=== PATIENT | female | born 1950 | race Caucasian/White ===

== ENCOUNTER 2019-09-11 14:03 | Inpatient (IN) | payer MEDICARE ==
[~2019-09-11] VITALS: Ht 27.9 cm; Wt 104.8 kg
[~2019-09-11 14:03] MED LIST: ALDACTONE50 M1 PO; ALDACTONE50 MG PO; FLEXERIL PO; GABAPENTIN100 MG PO; GABAPENTIN400 M2 PO; LEVOTHYROXIN150 MCG PO; MEDDOSEPAK PO; METFORMIN500 M1 PO; METFORMIN500 M2 PO; SYNTHROID150 MCG PO; VICODIN1 TA1 PO; ZOCOR PO; ZOCOR10 MG PO
[2019-09-11 15:31] LABS: HEMATOCRIT 37.5 % (37.0-47.0); HEMOGLOBIN 12.5 g/dl (12.0-16.0); IMMATURE GRANULOCYTES 1.3 % (0.0-5.0); MEAN CORPUSCULAR HGB 29.3 pG CALC (26.0-32.0); MEAN CORPUSCULAR HGB CONC 33.3 g/L CALC (32.0-36.0); NEUT# 23.08 thou/uL (2.00-7.15); RED BLOOD COUNT 4.26 mill/uL (4.20-5.60); RED CELL DISTRI WIDTH 15.2 % (11.5-15.5)
[2019-09-11 16:04] LABS: URINE BILIRUBIN - DIPSTICK NEGATIVE (NEGATIVE); URINE BLOOD DIPSTICK LARGE (NEGATIVE); URINE COLOR YELLOW; URINE GLUCOSE - DIPSTICK >=1000 mg/dL (NEGATIVE); URINE KETONE TRACE mg/dL (NEGATIVE); URINE LEUK ESTERASE NEGATIVE (NEGATIVE); URINE PH 5.5 (4.5-8.0); URINE PROTEIN - DIPSTICK TRACE mg/dL (NEG-TRACE); URINE SPECIFIC GRAVITY >=1.030; URINE UROBILINOGEN - DIPSTICK 0.2 E.U./dL (0.2)
[2019-09-11 16:08] LABS: URINE NITRITE - DIPSTICK POSITIVE (Negative)
[2019-09-11 16:17] LABS: URINE BACTERIA MANY hpf; URINE SQUAMOUS EPITHELIAL CELL FEW EPI/hpf (0-FEW)
[2019-09-11 16:21] LABS: PROTHROMBIN TIME 10.3 SECONDS (9.0-12.5)
[2019-09-11 17:20] LABS: ALBUMIN 3.5 g/dL (3.2-5.0); ALKALINE PHOSPHATASE 65 u/l (38-126); BUN 22 mg/dL (8-23); BUN/CREATININE RATIO 16 (12-20 (CALC)); CHLORIDE 99 mmol/l (95-108); CREATININE 1.4 mg/dL (0.5-1.0); GFR 37 ML/MIN (>=60 (CALC)); GFR FOR AFR.AMER. 45 ML/MIN (>=60 (CALC)); SGOT/AST 21 u/l (9-36); TOTAL PROTEIN 6.1 g/dL (6.3-8.2)
[2019-09-11 17:26] LABS: SODIUM 131 mmol/l (137-146)
[2019-09-11 17:27] LABS: ANION GAP 18 (6-22 (CALC)); BILIRUBIN, TOTAL 0.6 mg/dL (0.0-1.4); CARBON DIOXIDE 19 mmol/l (22-30); POTASSIUM 5.2 mmol/l (3.5-5.1)
[2019-09-11 21:51] VITALS: BP 109/65
[2019-09-11 22:15] VITALS: BP 111/61
[2019-09-11 23:30] VITALS: BP 93/48
[2019-09-11 23:45] VITALS: BP 92/45
[2019-09-12] VITALS (74 sets, daily range): BP systolic 60–144; BP diastolic 30–77
[2019-09-12 06:15] LABS: HEMATOCRIT 34.1 % (37.0-47.0); HEMOGLOBIN 11.2 g/dl (12.0-16.0); IMMATURE GRANULOCYTES 2.4 % (0.0-5.0); MEAN CORPUSCULAR HGB 29.2 pG CALC (26.0-32.0); MEAN CORPUSCULAR HGB CONC 32.8 g/L CALC (32.0-36.0); NEUT# 27.27 thou/uL (2.00-7.15); RED BLOOD COUNT 3.83 mill/uL (4.20-5.60); RED CELL DISTRI WIDTH 15.8 % (11.5-15.5)
[2019-09-12 06:23] LABS: ALBUMIN 2.9 g/dL (3.2-5.0); BILIRUBIN, TOTAL 0.5 mg/dL (0.0-1.4); CREATININE 1.5 mg/dL (0.5-1.0); POTASSIUM 4.8 mmol/l (3.5-5.1); TOTAL PROTEIN 5.3 g/dL (6.3-8.2)
[2019-09-12 10:45] LABS: URINE BILIRUBIN - DIPSTICK NEGATIVE (NEGATIVE); URINE BLOOD DIPSTICK MODERATE (NEGATIVE); URINE CLARITY HAZY; URINE COLOR YELLOW; URINE GLUCOSE - DIPSTICK 250 mg/dL (NEGATIVE); URINE KETONE NEGATIVE (NEGATIVE); URINE LEUK ESTERASE NEGATIVE (Negative); URINE NITRITE - DIPSTICK POSITIVE (Negative); URINE PROTEIN - DIPSTICK 30 mg/dL (NEG-TRACE); URINE UROBILINOGEN - DIPSTICK 0.2 E.U./dL (0.2)
[2019-09-12 10:47] LABS: URINE BACTERIA FEW hpf; URINE EPITHELIAL CELLS FEW EPI/hpf (0-FEW); URINE MUCUS FEW hpf (NONE-FEW)
[2019-09-13] VITALS (62 sets, daily range): BP systolic 98–145; BP diastolic 40–80
[2019-09-13 05:46] LABS: HEMATOCRIT 35.1 % (37.0-47.0); HEMOGLOBIN 11.3 g/dl (12.0-16.0); MEAN CELL VOLUME 90.5 fL CALC (80.0-100.0); MEAN CORPUSCULAR HGB 29.1 pG CALC (26.0-32.0); MEAN CORPUSCULAR HGB CONC 32.2 g/L CALC (32.0-36.0); RED BLOOD COUNT 3.88 mill/uL (4.20-5.60); RED CELL DISTRI WIDTH 15.7 % (11.5-15.5)
[2019-09-13 06:17] LABS: CREATININE 1.2 mg/dL (0.5-1.0); POTASSIUM 5.1 mmol/l (3.5-5.1)
[2019-09-13] MEDS ORDERED: PRAMIPEXOLE DIHY1 MG PO (17:17)
[2019-09-14] VITALS (40 sets, daily range): BP systolic 90–138; BP diastolic 46–79
[2019-09-14 05:29] LABS: HEMOGLOBIN 11.7 g/dl (12.0-16.0); MEAN CELL VOLUME 88.9 fL CALC (80.0-100.0); MEAN CORPUSCULAR HGB 28.9 pG CALC (26.0-32.0); MEAN CORPUSCULAR HGB CONC 32.5 g/L CALC (32.0-36.0); RED BLOOD COUNT 4.05 mill/uL (4.20-5.60); RED CELL DISTRI WIDTH 15.4 % (11.5-15.5)
[2019-09-14 05:46] LABS: ANION GAP 15 (6-22 (CALC)); BUN 31 mg/dL (8-23); BUN/CREATININE RATIO 30 (12-20 (CALC)); CARBON DIOXIDE 15 mmol/l (22-30); CHLORIDE 108 mmol/l (95-108); GFR 55 ML/MIN (>=60 (CALC)); GFR FOR AFR.AMER. > 60 ML/MIN (>=60 (CALC)); POTASSIUM 4.5 mmol/l (3.5-5.1); SODIUM 133 mmol/l (137-146)
[2019-09-14] MEDS ORDERED: CLEOCIN150 M1 PO (13:49)
[2019-09-15] VITALS (18 sets, daily range): BP systolic 90–127; BP diastolic 45–67
[2019-09-15 04:59] LABS: HEMATOCRIT 33.6 % (37.0-47.0); HEMOGLOBIN 11.1 g/dl (12.0-16.0); MEAN CELL VOLUME 88.2 fL CALC (80.0-100.0); MEAN CORPUSCULAR HGB 29.1 pG CALC (26.0-32.0); RED BLOOD COUNT 3.81 mill/uL (4.20-5.60); RED CELL DISTRI WIDTH 15.5 % (11.5-15.5)
[2019-09-15 05:26] LABS: ALBUMIN 2.9 g/dL (3.2-5.0); BILIRUBIN, TOTAL 0.5 mg/dL (0.0-1.4); BUN 38 mg/dL (8-23); BUN/CREATININE RATIO 41 (12-20 (CALC)); CHLORIDE 109 mmol/l (95-108); CREATININE 0.9 mg/dL (0.5-1.0); GFR > 60 ML/MIN (>=60 (CALC)); GFR FOR AFR.AMER. > 60 ML/MIN (>=60 (CALC)); POTASSIUM 4.3 mmol/l (3.5-5.1); SGOT/AST 20 u/l (9-36); SODIUM 135 mmol/l (137-146); TOTAL PROTEIN 5.3 g/dL (6.3-8.2)
[2019-09-15 05:45] LABS: ALKALINE PHOSPHATASE 96 u/l (38-126); ANION GAP 11 (6-22 (CALC)); CARBON DIOXIDE 19 mmol/l (22-30)
[2019-09-16] VITALS (19 sets, daily range): BP systolic 93–146; BP diastolic 45–79
[2019-09-17] VITALS (15 sets, daily range): BP systolic 87–167; BP diastolic 44–82
[2019-09-17 05:06] LABS: HEMATOCRIT 34.3 % (37.0-47.0); HEMOGLOBIN 11.3 g/dl (12.0-16.0); MEAN CELL VOLUME 87.9 fL CALC (80.0-100.0); MEAN CORPUSCULAR HGB CONC 32.9 g/L CALC (32.0-36.0); NEUT# 8.85 thou/uL (2.00-7.15); RED BLOOD COUNT 3.9 mill/uL (4.20-5.60); RED CELL DISTRI WIDTH 15.3 % (11.5-15.5)
[2019-09-17 05:10] LABS: IMMATURE GRANULOCYTES 13.3 % (0.0-5.0)
[2019-09-17 05:21] LABS: ALKALINE PHOSPHATASE 71 u/l (38-126); ANION GAP 10 (6-22 (CALC)); BILIRUBIN, TOTAL 0.6 mg/dL (0.0-1.4); BUN 37 mg/dL (8-23); BUN/CREATININE RATIO 47 (12-20 (CALC)); CHLORIDE 110 mmol/l (95-108); CREATININE 0.8 mg/dL (0.5-1.0); GFR > 60 ML/MIN (>=60 (CALC)); GFR FOR AFR.AMER. > 60 ML/MIN (>=60 (CALC)); MAGNESIUM 1.9 mg/dL (1.6-2.3); POTASSIUM 4.5 mmol/l (3.5-5.1); SGOT/AST 19 u/l (9-36); SODIUM 138 mmol/l (137-146); TOTAL PROTEIN 5.9 g/dL (6.3-8.2)
[2019-09-17 05:22] LABS: CARBON DIOXIDE 23 mmol/l (22-30)
[2019-09-18] VITALS (14 sets, daily range): BP systolic 118–160; BP diastolic 61–81
[2019-09-18 05:22] LABS: HEMATOCRIT 35.6 % (37.0-47.0); HEMOGLOBIN 11.9 g/dl (12.0-16.0); MEAN CELL VOLUME 86.4 fL CALC (80.0-100.0); MEAN CORPUSCULAR HGB 28.9 pG CALC (26.0-32.0); MEAN CORPUSCULAR HGB CONC 33.4 g/L CALC (32.0-36.0); RED BLOOD COUNT 4.12 mill/uL (4.20-5.60); RED CELL DISTRI WIDTH 14.8 % (11.5-15.5)
[2019-09-18 05:59] LABS: ANION GAP 11 (6-22 (CALC)); BUN 31 mg/dL (8-23); BUN/CREATININE RATIO 45 (12-20 (CALC)); CALCULATED LDLCHOLESTEROL 83 mg/dL (62-129 (CALC)); CARBON DIOXIDE 24 mmol/l (22-30); CHLORIDE 104 mmol/l (95-108); CHOLESTEROL HDL RATIO 4.5 (<4.4 (CALC)); CREATININE 0.7 mg/dL (0.5-1.0); GFR > 60 ML/MIN (>=60 (CALC)); GFR FOR AFR.AMER. > 60 ML/MIN (>=60 (CALC)); HDL CHOLESTEROL 37 mg/dL (>=40); MAGNESIUM 1.7 mg/dL (1.6-2.3); POTASSIUM 4.5 mmol/l (3.5-5.1); SODIUM 135 mmol/l (137-146); TOTAL CHOLESTEROL 167 mg/dl (0-199); TOTAL TRIGLYCERIDES 233 mg/dl (30-149); VLDL CHOLESTROL 47 mg/dl (0-48 (CALC))
[2019-09-19] VITALS: BP 139/60
[2019-09-19 02:00] VITALS: BP 154/66
[2019-09-19 04:00] VITALS: BP 146/57
[2019-09-19 05:38] LABS: HEMATOCRIT 36.3 % (37.0-47.0); HEMOGLOBIN 11.9 g/dl (12.0-16.0); MEAN CELL VOLUME 88.1 fL CALC (80.0-100.0); MEAN CORPUSCULAR HGB 28.9 pG CALC (26.0-32.0); MEAN CORPUSCULAR HGB CONC 32.8 g/L CALC (32.0-36.0); RED BLOOD COUNT 4.12 mill/uL (4.20-5.60); RED CELL DISTRI WIDTH 14.8 % (11.5-15.5)
[2019-09-19 06:09] LABS: ANION GAP 9 (6-22 (CALC)); BUN 22 mg/dL (8-23); BUN/CREATININE RATIO 39 (12-20 (CALC)); CARBON DIOXIDE 27 mmol/l (22-30); CHLORIDE 104 mmol/l (95-108); CREATININE 0.6 mg/dL (0.5-1.0); GFR > 60 ML/MIN (>=60 (CALC)); GFR FOR AFR.AMER. > 60 ML/MIN (>=60 (CALC)); POTASSIUM 4.5 mmol/l (3.5-5.1); SODIUM 134 mmol/l (137-146)
[2019-09-19 07:00] VITALS: BP 167/67
[2019-09-19] MEDS ORDERED: FLORASTOR250 M1 PO (07:24)
[2019-09-19] MEDS ORDERED: PLAVIX75 MG PO (07:24)
[2019-09-19] MEDS ORDERED: LEVEMIR FL100 UNIT/M SC (07:25)
[2019-09-19] MEDS ORDERED: LEVAQUIN750 MG PO (07:26)
[2019-09-19] MEDS ORDERED: MEDDOSEPAK PO (07:26)
== END 2019-09-19 09:50 | disposition home health service (06) | DRG 853 ==
LOC: ED 14:03 → ED-I 18:20 → ED 18:42 → MS2 18:43 → ICU 18:43
PROVIDERS: Family Medicine; ADMIT Internal Medicine; ATTEND Internal Medicine
PROC: 0T778DZ Dilation of Left Ureter with Intraluminal Device, Via Natural or Artificial Opening Endoscopic (ICD-10-PCS; principal; 2019-09-12)
PROC: BT1FZZZ Fluoroscopy of Left Kidney, Ureter and Bladder (ICD-10-PCS; 2019-09-12)
DX: A41.51 Sepsis due to Escherichia coli [E. coli] (principal); R65.21 Severe sepsis with septic shock; N13.6 Pyonephrosis; Z68.42 Body mass index [BMI] 45.0-49.9, adult; N17.9 Acute kidney failure, unspecified; E66.2 Morbid (severe) obesity with alveolar hypoventilation; I24.8 Other forms of acute ischemic heart disease; J45.901 Unspecified asthma with (acute) exacerbation; E11.9 Type 2 diabetes mellitus without complications; E87.70 Fluid overload, unspecified; E03.9 Hypothyroidism, unspecified; F41.0 Panic disorder [episodic paroxysmal anxiety]; D72.823 Leukemoid reaction; T36.1X5A Adverse effect of cephalosporins and other beta-lactam antibiotics, initial encounter; B96.20 Unspecified Escherichia coli [E. coli] as the cause of diseases classified elsewhere; M25.512 Pain in left shoulder; M25.552 Pain in left hip; W18.30XA Fall on same level, unspecified, initial encounter; Y92.009 Unspecified place in unspecified non-institutional (private) residence as the place of occurrence of the external cause; Z96.642 Presence of left artificial hip joint; Z87.891 Personal history of nicotine dependence; Z79.84 Long term (current) use of oral hypoglycemic drugs; Z88.6 Allergy status to analgesic agent; Z86.14 Personal history of Methicillin resistant Staphylococcus aureus infection; Z79.2 Long term (current) use of antibiotics
CPT/HCPCS: C1769; J0131; J0692; J1650; J1956; J3370; J3475; Q3014; Q9967; S0073

== ENCOUNTER 2019-10-26 | Day surgery (SDC) | payer MEDICARE ==
[~2019-10-26] MED LIST changes: +CLEOCIN150 M1 PO; +FLORASTOR250 M1 PO; +LEVAQUIN750 MG PO; +LEVEMIR FL100 UNIT/M SC; +PLAVIX75 MG PO; +PRAMIPEXOLE DIHY1 MG PO
[2019-10-26] MEDS ORDERED: ALBUTEROL SUL0.083 % IN (10:52)
== END 2019-10-26 14:30 | disposition home or self-care (01) ==
PROC: 0TC48ZZ Extirpation of Matter from Left Kidney Pelvis, Via Natural or Artificial Opening Endoscopic (ICD-10-PCS; principal; 2019-10-26)
PROC: 0T778DZ Dilation of Left Ureter with Intraluminal Device, Via Natural or Artificial Opening Endoscopic (ICD-10-PCS; 2019-10-26)
PROC: 0TP98DZ Removal of Intraluminal Device from Ureter, Via Natural or Artificial Opening Endoscopic (ICD-10-PCS; 2019-10-26)
DX: N20.1 Calculus of ureter (principal); E11.9 Type 2 diabetes mellitus without complications; E03.9 Hypothyroidism, unspecified; I25.10 Atherosclerotic heart disease of native coronary artery without angina pectoris; E66.9 Obesity, unspecified; Z68.41 Body mass index [BMI] 40.0-44.9, adult; Z79.84 Long term (current) use of oral hypoglycemic drugs
CPT/HCPCS: J0131; J1956; Q9967

== ENCOUNTER 2023-07-04 15:24 | Emergency (ER) | payer MEDICARE ==
[~2023-07-04] VITALS: Ht 149.9 cm; Wt 90.9 kg
[2023-07-04] VITALS (13 sets, daily range): BP systolic 99–124; BP diastolic 35–59
[~2023-07-04 15:24] MED LIST changes: +ALBUTEROL SUL0.083 % IN
[2023-07-04 17:12] LABS: BASO% 0.4 % (0-3); EOS% 2.4 % (0-8); HEMATOCRIT 41.3 % (37.0-47.0); HEMOGLOBIN 13.4 g/dl (12.0-16.0); IMMATURE GRANULOCYTES 0.4 % (0.0-5.0); LYMPH% 8.9 % (15-41); MEAN CELL VOLUME 89.8 fL CALC (80.0-100.0); MEAN CORPUSCULAR HGB 29.1 pG CALC (26.0-32.0); MEAN CORPUSCULAR HGB CONC 32.4 g/dL CAL (32.0-36.0); MONO% 4.7 % (2-13); NEUT# 6.86 thou/uL (2.00-7.15); NEUT% 83.2 % (42-76); RED BLOOD COUNT 4.6 mill/uL (4.20-5.60); RED CELL DISTRI WIDTH 14.1 % (11.5-15.5)
[2023-07-04] MEDS ORDERED: IPRATROPIU0.5 MG/3 M IN ×2 (17:20→18:29)
[2023-07-04] MEDS ORDERED: NEBULIZER PO (17:20)
[2023-07-04] MEDS ORDERED: PREDNISONE50 MG PO ×2 (17:20→18:29)
[2023-07-04 17:37] LABS: ALKALINE PHOSPHATASE 88 u/l (38-126); ANION GAP 15 (6-22 (CALC)); BILIRUBIN, TOTAL 0.6 mg/dL (0.02-1.3); BUN 10 mg/dL (8-23); BUN/CREATININE RATIO 13 (12-20 (CALC)); CARBON DIOXIDE 25 mmol/l (22-30); CHLORIDE 100 mmol/l (95-108); CREATININE 0.8 mg/dL (0.5-1.0); GFR FOR AFR.AMER. > 60 ML/MIN (>=60 (CALC)); GFR OTHER RACES > 60 ML/MIN (>=60 (CALC)); POTASSIUM 4.3 mmol/l (3.5-5.1); SODIUM 136 mmol/l (137-146)
[2023-07-04 17:39] LABS: ALBUMIN 4.4 g/dL (3.2-5.0); SGOT/AST 47 u/l (9-36); TOTAL PROTEIN 7.4 g/dL (6.3-8.2)
[2023-07-04] MEDS ORDERED: ZPAK PO ×2 (18:00→18:29)
== END 2023-07-04 18:38 | disposition home or self-care (01) ==
LOC: ED 15:24
PROVIDERS: Family Medicine
DX: J45.901 Unspecified asthma with (acute) exacerbation (principal); E11.9 Type 2 diabetes mellitus without complications; E03.9 Hypothyroidism, unspecified; Z79.4 Long term (current) use of insulin; Z79.84 Long term (current) use of oral hypoglycemic drugs; Z20.822 Contact with and (suspected) exposure to COVID-19